=== PATIENT | female | born 1960 | race Caucasian/White ===

== ENCOUNTER 2022-02-19 11:57 | Inpatient (IN) | payer MEDICARE, OTHER, SELFPAY ==
[2022-02-19] VITALS (8 sets, daily range): BP systolic 102–152; BP diastolic 44–59; PULSE 102–117; RESP 18–26; TEMP 37.1–37.2; O2SAT 92–98
--- NOTE | ~2022-02-19 | XR_ITS ---
EXAMINATION: XR chest 2V DATE: 02/19/2022 12:35 INDICATION: Cough. Shortness of breath. TECHNIQUE: Frontal and lateral views of the chest were obtained. COMPARISON: None. FINDINGS: There is mild atelectasis in the lower lung zones. No pleural effusion or pneumothorax. Car diomegaly is noted. There are changes of posterior fusion procedure in lumbar spine. IMPRESSION: 1. Mild atelectasis in the lower lung zones. 2. Cardiomegaly. Reviewed, dictated and finalized at location A. COMMUNICATION ENGINEER
--- NOTE | 2022-02-19 12:07 | ECG_ITS ---
Measurements Intervals [place] Rate: 112 P: 41 OR: 129 QRS: 34 QRSD: 78 T: 29 QT: 315 QTc: 432 Interpretive Statements SINUS TACHYCARDIA VENTRICULAR PREMATURE COMPLEX LOW QRS VOLTAGE IN PRECORDIAL LEADS BASELINE WANDER- V3, V6 ABNORMAL ECG NO PREVIOUS ECG AVAILABLE FOR COMPARISON Electronically Signed On 02-19-2022 12:48:48 STRIKER OFF by Jl Short D.O.
[2022-02-19 12:20] LABS: Basophils Percent Auto 0.2 % (0.2-1.2); Hematocrit 40.6 % (37.0-47.0); Hemoglobin 13.5 g/dL (12.0-15.0); Immature Granulocyte Absolute 0.09 K/mm3 (0.00-0.031); Immature Granulocyte Percent A 0.5 % (0-0.5); Lymphocytes Absolute Auto 1.39 K/mm3 (0.9-3.2); Lymphocytes Percent Auto 8.1 % (18.3-44.2); Mean Corpuscular HGB Conc 33.3 g/dl (32-36); Mean Corpuscular Volume 93.1 fl (80-100); Mean Platelet Volume 9.2 fl (7.4-10.4); Monocytes Absolute Auto 0.9 K/mm3 (0.1-0.6); Monocytes Percent Auto 4.9 % (2.6-8.5); Neutrophils Absolute Auto 14.9 K/mm3 (1.3-6.7); Neutrophils Percent Auto 86.3 % (45.5-73.1); Platelet Count Result 296 k/mm3 (150-375); Red Blood Count 4.36 M/mm3 (4.2-5.4); Red Cell Distribution Width 12.9 % (11.5-14.5); White Blood Count 17.3 K/mm3 (4.5-10.0)
[2022-02-19 12:31] LABS: Alanine Aminotransferase 25 U/L (6-35); Albumin Level 4.4 g/dL (3.5-5.1); Alkaline Phosphatase 136 U/L (38-126); Anion Gap 19 mmol/L (8-16); Aspartate Amino Transferase 37 U/L (14-36); Bilirubin,Total 0.5 mg/dL (0.2-1.3); Blood Urea Nitrogen 24 mg/dL (7-17); Calcium 9.4 mg/dL (8.4-10.2); Carbon Dioxide 21 mmol/L (22-30); Chloride 101 mmol/L (98-107); Estimated CRCL calculation 49 ml/min; Estimated Glomerular Filt Rate 51; Glucose 163 mg/dL (65-110); Potassium 3.6 mmol/L (3.4-5.0); Sodium 141 mmol/L (137-145)
[2022-02-19] MEDS: ALBUTEROL SULFATE NEB 2.5 MG/3 ML INH INHALATION (12:48)
[2022-02-19] MEDS: IPRATROPIUM BR 0.02% INH SOLN 0.5 MG/2.5 ML VIAL INHALATION (12:49)
[2022-02-19 13:55] LABS: NT Pro B Type Natriuretic Pept 112 pg/mL (5-100); Troponin I < 0.012 ng/mL (0.000-0.034)
--- NOTE | 2022-02-19 14:47 | ED.SOB ---
HPI - SOB/Dyspnea General Chief Complaint: Shortness of Breath/Dyspnea Stated Complaint: Asthma exacerbation Time Seen by Provider: 02/19/22 12:30 History of Present Illness HPI Narrative: Pt presents with worsening SOB for several days. Pt has been seen by provider and is on prednisone 40 mg a day and not getting better. Pt denies fever. Pt has asthma history and has been hospitalized but never intubated or ICU. Related Data Allergies Allergy/AdvReac Type Severity Reaction Status Date / Time morphine AdvReac Hallucinati Verified 02/19/22 12:06 ng Review of Systems Review of Systems: All systems reviewed & are unremarkable except as noted in HPI and below PMFSH Past Medical History Medical History (Updated 02/19/22 @ 14:51 by Juvenal Grossman III, DO) Adrenal insufficiency Allergic rhinitis Cerebrovascular accident Left frontal lobe. Gastroesophageal reflux disease Hyperlipidemia Hypertension Hypothyroidism Left carotid artery occlusion Lumbar spinal stenosis Migraine Moderate persistent asthma Obstructive sleep apnea Osteopenia Pharyngoesophageal dysphagia Pulmonary nodule Rheumatoid arthritis Type 1 diabetes mellitus Complicated by retinopathy and neuropathy. Surgical History Surgical History (Updated 02/19/22 @ 14:50 by Judy Castellanos PA-C) History of 3 sections History of appendectomy History of bilateral cataract extraction History of dilation and curettage History of laparoscopic cholecystectomy History of lumbar spinal fusion History of lung biopsy Excision of benign right lower lobe nodule. History of right knee joint replacement History of tubal ligation History of vitrectomy Status post trigger finger release Exam Const: General: healthy appearing Nutritional Appearance: well nourished Orientation/consciousness: patient oriented x3 Limitations: no limitations Neck: Neck: normal visual inspection Chest: Chest palpation & inspection: normal inspection of the chest Resp: Effort & Inspection: labored Auscultation: wheezes Cardio: Rate: regular rate Rhythm: regular rhythm GI: GI Palp: Yes Soft to palpation Auscultation: normal bowel sounds Back/Spine/Pelvis: Back: no CVA tenderness Skin: General skin exam: normal color Rashes: no rashes Neuro: General: patient oriented x3, moves all extremities, no meningeal signs, no focal motor deficits and CN's II-XI intact bilaterally Cranial nerves: Yes Nystagmus not present Speech: normal speech Gait exam (Neuro): Normal gait present Extrem: General: normal to inspection and no clubbing, cyanosis or edema Psych: Mental Status: mental status grossly normal Affect: normal affect Attitude: cooperative Course Vital Signs Vital signs: Vital Signs Temperature 98.7 F 02/19/22 12:00 Pulse Rate 117 H 02/19/22 12:00 Respiratory Rate 24 H 02/19/22 12:00 Blood Pressure 152/59 H 02/19/22 12:00 Pulse Oximetry 96 02/19/22 12:00 Oxygen Delivery Room Air 02/19/22 12:00 Temperature 98.7 F 02/19/22 12:00 Pulse Rate 104 H 02/19/22 18:31 Respiratory Rate 19 02/19/22 18:31 Blood Pressure 128/56 L 02/19/22 18:31 Pulse Oximetry 98 02/19/22 18:31 Oxygen Delivery Room Air 02/19/22 12:47 MDM - SOB/Dyspnea Lab Data Result diagrams: 02/19/22 12:09 02/19/22 12:09 Labs: Lab Results 02/19/22 02/19/22 02/19/22 Range/Units 12:09 12:09 12:09 WBC 17.3 H (4.5-10.0) K/mm3 RBC 4.36 (4.2-5.4) M/mm3 Hgb 13.5 (12.0-15.0) g/dL Hct 40.6 (37.0-47.0) % MCV 93.1 (80-100) fl MCH 31.0 (26-34) pg MCHC 33.3 (32-36) g/dl RDW 12.9 (11.5-14.5) % Plt Count 296 (150-375) k/mm3 MPV 9.2 (7.4-10.4) fl Immature Gran % (Auto) 0.5 (0-0.5) % Neut % (Auto) 86.3 H (45.5-73.1) % Lymph % (Auto) 8.1 L (18.3-44.2) % [place] % (Auto) 4.9 (2.6-8.5) % Eos % (Auto) 0.0 (0-4.4) % Baso % (Auto) 0.2 (0.2-1.2)
[2022-02-19] MEDS: methylPREDNISolone SOD SUCC 125 MG VIAL IV PUSH (14:54)
--- NOTE | 2022-02-19 15:00 | PM.IMHP ---
H&P: HPI History of Present Illness Date/Time: 02/19/22 15:00 Chief Complaint: Shortness of breath. Narrative: This is a pleasant 61-year-old female with moderate persistent asthma, allergic rhinitis, type 1 diabetes, rheumatoid arthritis, hypothyroidism, adrenal insufficiency, hypertension, obstructive sleep apnea, and other comorbidities who presented to the ED for evaluation of shortness of breath. Her asthma is typically pretty well controlled although change in weather does occasionally cause her symptoms to act up. Last week she had cold symptoms although she started feeling better on Thursday. Over the weekend she visit her parents at their assisted living facility however she was unable to see them [id number] as they apparently have COVID, but she did sit in chest with several of the residents that day. On Thursday she started to feel short of breath while getting ready for taoism and she actually skipped taoism that day. Since that time she reports progressive dyspnea on lesser and lesser exertion with wheezing and cough productive of occasional clear, brown, or yellow colored phlegm. She has not had fever, chills, sweats, nausea, or vomiting. She also denies exertional chest pain and pleuritic pain. She has never been intubated for an asthma exacerbation. Two days ago she was given a prescription for prednisone, unfortunately without benefit. She went to see her doctor in office today and was sent to the ED instead as she appeared ill and was wheezing significantly. She is feeling better at this time after receiving a DuoNeb and IV Solu-Medrol. She has been afebrile since arrival with stable blood pressures, her heart rate has been continuously elevated in the low 100s. Workup was significant for white blood cell count of 17.3, BUN 24, creatinine 1.10, troponin less than 0.012, and proBNP of 112. Chest x-ray showed mild atelectasis in the lower lung zones and cardiomegaly. No viral testing was ordered. Due to continued cough and wheeze, she is being admitted overnight for further treatment. Review of Systems Review of Systems: Twelve systems were reviewed. No syncope or near syncope. No fever, chills, or sweats. No exertional chest pain. No orthopnea or paroxysmal nocturnal dyspnea. Diabetes is well controlled with recent A1c of 6.7%, per patient report. No nausea, vomiting, or diarrhea. Except as documented, all other systems were reviewed and are negative. PMFSH Past Medical History Medical History (Updated 02/19/22 @ 21:56 by Judy Castellanos PA-C) Adrenal insufficiency Allergic rhinitis Cerebrovascular accident Left frontal lobe. Gastroesophageal reflux disease Hyperlipidemia Hypertension Hypothyroidism Left carotid artery occlusion Lumbar spinal stenosis Migraine Moderate persistent asthma Obstructive sleep apnea Osteopenia Pharyngoesophageal dysphagia Pulmonary nodule Rheumatoid arthritis Type 1 diabetes mellitus Complicated by retinopathy and neuropathy. Recent A1c was 6.7 % per patient report. Surgical History Surgical History (Updated 02/19/22 @ 14:50 by Judy Castellanos PA-C) History of 3 sections History of appendectomy History of bilateral cataract extraction History of dilation and curettage History of laparoscopic cholecystectomy History of lumbar spinal fusion History of lung biopsy Excision of benign right lower lobe nodule. History of right knee joint replacement History of tubal ligation History of vitrectomy Status post trigger finger release Family History Family History (Updated 02/19/22 @ 21:49 by Judy Castellanos PA-C) Father Type 1 diabetes Hypertension Mother Heart disease Social History Social History (Updated 02/19/22 @ 21:49 by Judy Castellanos PA-C) Social History: Surrogate medical decision maker: Axel Gonzalez, spouse. Code status: Full code. Smoking status: Never smoker Alcohol intake: never Substance use: never Lack of Transportation: No
--- NOTE | 2022-02-19 19:45 | ADMGEN ---
This patient, Cher Gonzalez, was admitted to 3 [facility] Surg Room 319-01. Patient/family oriented to hospital policies and general routines including ID bracelet, bed and alarms, visiting hours, pain management, procedures, bathroom and other care routines, personal items, smoking policy, room service/diet, and visiting hours. Information on how to activate the Rapid Response Team has been discussed. Patient/Family are encouraged to report perceived risks to care and to ask questions if they do not understand what they are told or what they should do.
[2022-02-19 21:14] LABS: Glucose Point of Care 135 mg/dl (65-105)
[2022-02-19] MEDS: WATER FOR IRRIGATION, STERILE 1,000 ML BOTTLE 1000 ML (21:50)
[2022-02-19] MEDS: NORTRIPTYLINE HCL 25 MG CAPSULE PO (22:43)
[2022-02-19] MEDS: methylPREDNISolone SOD SUCC 125 MG VIAL 60 MG IV PUSH (22:43)
[2022-02-19] MEDS: DONEPEZIL HCL 10 MG TABLET PO (22:43)
[2022-02-19] MEDS: FAMOTIDINE 20 MG TABLET 40 MG PO (22:43)
[2022-02-19] MEDS: PREGABALIN (*CRX) 50 MG CAPSULE 100 MG PO (22:43)
[2022-02-19] MEDS: MONTELUKAST SODIUM 10 MG TABLET PO (22:43)
[2022-02-19] MEDS: ZONISAMIDE 100 MG CAPSULE 300 MG PO (22:43)
[2022-02-19] MEDS: ATORVASTATIN 40 MG TABLET PO (22:44)
[2022-02-19] MEDS: PROMETHAZINE/CODEINE (*CRX) 5 ML SYRUP PO (23:21)
[2022-02-19 23:33] LABS: Hemoglobin A1C 6.8 % (<5.7)
[2022-02-20] VITALS (10 sets, daily range): BP systolic 120–143; BP diastolic 48–63; PULSE 94–113; RESP 16–20; TEMP 36.1–36.6; O2SAT 90–98
--- NOTE | 2022-02-20 00:08 | ECHO_ITS ---
Patient Info Name: Cher Gonzalez Age: 61 years : 1960 Gender: Female Ht: 60 in Wt: 198 lbs BSA: 2.00 m2 HR: 95 bpm BP: 125 / 63 mmHg Heart Rhythm: Sinus Rhythm, Tachycardia Technical Quality: Fair Exam Date: 02/20/2022 11:54 AM Exam Location: [facility] Room: [facility] Patient Status: Inpatient Admit Date: 02/19/2022 Staff Ordering Physician: Judy Castellanos PA-C [employer]: Elisa Isbell RDCS Attending Provider: Reggie Layton MD Referring Physician: Emanuel VELEZ; Exam Type: CA echo dop color flow w con Study Info Indications - cardiomegaly Complete two-dimensional, color flow and Doppler transthoracic echocardiogram is performed with contrast to opacify the left ventricle and to improve the deliniation of the left ventricle endocardial borders. Contrast/Agitated Saline Contrast/Ag. Saline: Definity Amount: 2.00 ml Administered By: Elisa Isbell RUST Existing IV Access: Yes IV Access Condition: patent with no signs of infiltration Summary 1. Left ventricular systolic function is normal, estimated at 65-70%. 2. The left ventricular diastolic function is grade I diastolic dysfunction. 3. Right ventricular systolic function is normal. 4. There is trace mitral valve regurgitation. 5. There is trace tricuspid valve regurgitation. Left Ventricle Left ventricular chamber dimension is normal. Left ventricular systolic function is normal, estimated at 65-70%. There is no increased left ventricular wall thickness. The left ventricular diastolic function is grade I diastolic dysfunction. Right Ventricle Right ventricular chamber dimension is normal. Right ventricular systolic function is normal. Left Atria Left atrial chamber dimension is normal. Right Atria Right atrial chamber dimension is normal. Atrial Septum Intact interatrial septum visualized by color flow imaging. Aortic Valve The aortic valve is not well visualized. Pulmonic Valve The pulmonic valve is not well visualized. Mitral Valve The mitral valve has normal leaflets. There is no mitral valve stenosis. There is trace mitral valve regurgitation. Tricuspid Valve The tricuspid valve leaflets are not well visualized. There is trace tricuspid valve regurgitation. Pericardium/Pleural There is no pericardial effusion. Inferior Vena Cava Normal inferior vena cava with >50% collapse upon inspiration consistent with normal right atrial pressure. Aorta The aortic root size at the sinus of Valsalva is not well visualized. Left Ventricular Outflow Tract Name Value Normal LVOT 2D LVOT Diameter 1.95 cm LVOT Doppler LVOT Peak Gradient 7 mmHg LVOT Mean Gradient 4 mmHg LVOT VTI 25.77 cm LVOT VTI/AV VTI Ratio 1.02 LVOT Stroke Volume 77.10 ml LVOT CO 17.62 l/min LVOT CI 8.81 L/min/m2 Pulmonic Valve
[2022-02-20 00:11] LABS: Influenza A QL RT-PCR Negative (Negative); Influenza B QL RT-PCR Negative (Negative); RSV RNA, RT-PCR Negative (Negative); SARS-CoV-2 RNA PCR Negative
--- NOTE | 2022-02-20 00:47 | PC.NURSE ---
Insulin infusion pump agreement signed. Worksheet given and explained to patient. Basal Rate 12a-4a 1.2u/hr 4a-3p 2.2u/hr 3p-10p2.1 u/hr 10p-12a 1.7u/hr
[2022-02-20] MEDS: SODIUM CHLORIDE 0.9% IV 1,000 ML 100 ML IV CONT ×2 (02:46→22:20)
[2022-02-20] MEDS: HOME MEDICATION 1 EACH XX (06:06)
[2022-02-20] MEDS: LEVOTHYROXINE SODIUM 88 MCG TABLET PO (06:06)
[2022-02-20 07:22] LABS: Hematocrit 39.9 % (37.0-47.0); Hemoglobin 12.9 g/dL (12.0-15.0); Mean Corpuscular HGB Conc 32.3 g/dl (32-36); Mean Corpuscular Volume 95.9 fl (80-100); Mean Platelet Volume 9.2 fl (7.4-10.4); Platelet Count Result 318 k/mm3 (150-375); Red Blood Count 4.16 M/mm3 (4.2-5.4); Red Cell Distribution Width 13.1 % (11.5-14.5); White Blood Count 15.2 K/mm3 (4.5-10.0)
[2022-02-20 07:44] LABS: Alanine Aminotransferase 22 U/L (6-35); Albumin Level 4.1 g/dL (3.5-5.1); Alkaline Phosphatase 110 U/L (38-126); Anion Gap 14 mmol/L (8-16); Aspartate Amino Transferase 38 U/L (14-36); Bilirubin,Total 0.4 mg/dL (0.2-1.3); Blood Urea Nitrogen 25 mg/dL (7-17); Calcium 9.3 mg/dL (8.4-10.2); Carbon Dioxide 25 mmol/L (22-30); Chloride 103 mmol/L (98-107); Estimated CRCL calculation 52 ml/min; Estimated Glomerular Filt Rate 57; Glucose 73 mg/dL (65-110); Magnesium 2.7 mg/dL (1.6-2.3); Potassium 3.9 mmol/L (3.4-5.0); Sodium 142 mmol/L (137-145)
[2022-02-20 08:03] LABS: CRP 13.5 mg/dL (<1.0)
[2022-02-20] MEDS: IPRATROPIUM BR 0.02% INH SOLN 0.5 MG/2.5 ML VIAL INHALATION ×4 (08:50→20:37)
[2022-02-20] MEDS: ALBUTEROL SULFATE NEB 2.5 MG/3 ML INH 5 MG INHALATION ×4 (08:50→20:36)
[2022-02-20] MEDS: FLUTICASONE/UMECLIDIN/VILANTER 200-62.5-25 MCG ELLIPTA 1 PUFF INHALATION (09:01)
[2022-02-20 09:07] LABS: Thyroid Stimulating Hormone Reflex 0.515 uIU/mL (0.465-4.68)
[2022-02-20] MEDS: predniSONE 20 MG TABLET 40 MG PO (09:08)
[2022-02-20] MEDS: CLOPIDOGREL BISULFATE 75 MG TABLET PO (09:08)
[2022-02-20] MEDS: FOLIC ACID 1 MG TABLET PO (09:08)
[2022-02-20] MEDS: PANTOPRAZOLE 40 MG TABLET PO (09:08)
[2022-02-20] MEDS: lisinopriL 5 MG TABLET PO (09:08)
[2022-02-20] MEDS: modafiniL (*CRX) 200 MG TABLET PO (09:08)
[2022-02-20] MEDS: LORATADINE 10 MG TABLET PO (09:08)
[2022-02-20] MEDS: TORSEMIDE 20 MG TABLET 40 MG PO (09:08)
[2022-02-20] MEDS: CYANOCOBALAMIN 1,000 MCG TABLET 1000 MCG PO (09:08)
[2022-02-20] MEDS: modafiniL (*CRX) 100 MG TABLET PO (09:09)
[2022-02-20] MEDS: FLUTICASONE PROPIONATE 0.05% NA SPR 16 GM BTL (*BKC) 2 SPRAY NASAL (09:09)
[2022-02-20] MEDS: AZELASTINE HCL NASAL 0.1% 137 MCG/SPR 30 ML BTL 1 SPRAY NASAL ×2 (09:09→22:11)
[2022-02-20] MEDS: PREGABALIN (*CRX) 25 MG CAPSULE PO (09:09)
[2022-02-20] MEDS: aMILoride HCL 5 MG TABLET PO (09:13)
[2022-02-20 09:42] LABS: Procalcitonin 0.1 ng/mL
[2022-02-20] MEDS: PERFLUTREN LIPID MICROSPHERES 1.5 ML VIAL DILUTED TO 10 ML TOTAL VOLUME IV PUSH (11:50)
--- NOTE | 2022-02-20 12:59 | PCDIET ---
Nutrition consult received for insulin pump management. Pt is not a new diabetic, has used the pump for years, no questions or concerns at this time.
--- NOTE | 2022-02-20 17:20 | PM.IMPN ---
Progress Note: A&P Assessment and Plan (1) Asthma with exacerbation: Qualifiers: Asthma severity: moderate Asthma persistence: persistent Qualified Code(s): J45.41 - Moderate persistent asthma with (acute) exacerbation Code(s): J45.901 - Unspecified asthma with (acute) exacerbation Status: Acute Assessment and Plan: Likely precipitated by change in weather and recent URI. Continue scheduled bronchodilators some increase to Q 4. she received 2 doses of Solu-Medrol and it did upon admission transition to prednisone 40 mg p.o. q.day x5 doses, starting today 02/19/2022. Monitor peak flows and encourage incentive spirometry, IS 750 mL (2) Upper respiratory infection: Qualifiers: URI type: unspecified viral URI Qualified Code(s): J06.9 - Acute upper respiratory infection, unspecified Code(s): J06.9 - Acute upper respiratory infection, unspecified Status: Acute Assessment and Plan: cold symptoms last week which improved over the weekend but her cough has returned. There is no evidence of infection on chest x-ray however she presented with increasing shortness of breath with a productive cough, increasing sputum change in color continue empiric antibiotics, started IV azithromycin and Rocephin started on 02/19/2022. Sputum to be attempted for culture. influenza A/B, RSV, and COVID all negative. (3) Cardiomegaly: Code(s): I51.7 - Cardiomegaly Status: Acute Assessment and Plan: Echocardiogram for cardiomegaly and dyspnea pending. (4) Type 1 diabetes mellitus: Qualifiers: Diabetes mellitus complication status: with neurologic complications Diabetes mellitus complication detail: with polyneuropathy Qualified Code(s): E10.42 - Type 1 diabetes mellitus with diabetic polyneuropathy Code(s): E10.9 - Type 1 diabetes mellitus without complications Status: Chronic Assessment and Plan: chronic, Well controlled with a recent A1c of 6.7%. continue insulin pump and continuous glucose monitor. settings 1.2 units 12:00 a.m. to 4:00 a.m., 2.2 units for a.m. to 1500, 1 unit [id number], 1.7 units 2200 to 2400. The patient had a hypoglycemic episode, glucose 57 and she was asymptomatic this morning. She is given oral food and she was and repeat blood sugar 110. (5) Adrenal insufficiency: Code(s): E27.40 - Unspecified adrenocortical insufficiency Status: Chronic Assessment and Plan: Currently receiving Solu-Medrol thus will hold prednisone 5 milligrams daily. (6) Hypothyroidism: Code(s): E03.9 - Hypothyroidism, unspecified Status: Chronic Assessment and Plan: Continue levothyroxine. (7) Obstructive sleep apnea: Code(s): G47.33 - Obstructive sleep apnea (adult) (pediatric) Status: Chronic Assessment and Plan: CPAP will be provided for the patient to use while hospitalized. (8) Hypertension: Code(s): I10 - Essential (primary) hypertension Status: Chronic Assessment and Plan: Blood pressures were reviewed and they are stable. continue Amiloride, lisinopril and torsemide at home doses. (9) Left carotid artery occlusion: Code(s): I65.22 - Occlusion and stenosis of left carotid artery Status: Acute Assessment and Plan: Continue clopidogrel. Plan CODE STATUS: FULL CODE DISPOSITION: Home was spouse. Time Spent With Patient Time with patient: 15 - 25 minutes Subjective Date/time seen: 02/20/22 17:20 She felt very short of breath while showering and following. No dizziness, chest pain, chest pain, abdominal pain, nausea vomiting. She does have persistent cough with brown green sputum. Review of Systems Review of Systems: All systems reviewed & are unremarkable except as noted in HPI and below Exam Narrative: GENERAL: tired appearing, well-nourished older adult female, non-toxic, in no
[2022-02-20] MEDS: ATORVASTATIN 40 MG TABLET PO (22:12)
[2022-02-20] MEDS: FAMOTIDINE 20 MG TABLET 40 MG PO (22:12)
[2022-02-20] MEDS: NORTRIPTYLINE HCL 25 MG CAPSULE PO (22:12)
[2022-02-20] MEDS: ZONISAMIDE 100 MG CAPSULE 300 MG PO (22:12)
[2022-02-20] MEDS: DONEPEZIL HCL 10 MG TABLET PO (22:13)
[2022-02-20] MEDS: MONTELUKAST SODIUM 10 MG TABLET PO (22:13)
[2022-02-20] MEDS: PREGABALIN (*CRX) 50 MG CAPSULE 100 MG PO (22:19)
[2022-02-20 23:58] LABS: Glucose Point of Care 117 mg/dl (65-105)
[2022-02-21] VITALS (18 sets, daily range): BP systolic 114–154; BP diastolic 49–53; PULSE 3–110; RESP 16–20; TEMP 36–37.4; O2SAT 91–96
[2022-02-21] MEDS: PROMETHAZINE/CODEINE (*CRX) 5 ML SYRUP PO ×2 (00:06→23:03)
[2022-02-21] MEDS: IPRATROPIUM BR 0.02% INH SOLN 0.5 MG/2.5 ML VIAL INHALATION ×7 (00:06→23:37)
[2022-02-21] MEDS: ALBUTEROL SULFATE NEB 2.5 MG/3 ML INH 5 MG INHALATION ×7 (00:06→23:37)
[2022-02-21] MEDS: HOME MEDICATION 1 EACH XX (06:59)
[2022-02-21] MEDS: LEVOTHYROXINE SODIUM 88 MCG TABLET PO (06:59)
[2022-02-21 07:38] LABS: Glucose Point of Care 78 mg/dl (65-105)
[2022-02-21 08:13] LABS: Glucose Point of Care 121 mg/dl (65-105)
[2022-02-21] MEDS: FLUTICASONE/UMECLIDIN/VILANTER 200-62.5-25 MCG ELLIPTA 1 PUFF INHALATION (08:32)
[2022-02-21] MEDS: predniSONE 20 MG TABLET 40 MG PO (08:57)
[2022-02-21] MEDS: AZELASTINE HCL NASAL 0.1% 137 MCG/SPR 30 ML BTL 1 SPRAY NASAL ×2 (08:57→20:24)
[2022-02-21] MEDS: CLOPIDOGREL BISULFATE 75 MG TABLET PO (08:57)
[2022-02-21] MEDS: FLUTICASONE PROPIONATE 0.05% NA SPR 16 GM BTL (*BKC) 2 SPRAY NASAL (08:58)
[2022-02-21] MEDS: lisinopriL 5 MG TABLET PO (08:58)
[2022-02-21] MEDS: modafiniL (*CRX) 100 MG TABLET PO (08:58)
[2022-02-21] MEDS: CYANOCOBALAMIN 1,000 MCG TABLET 1000 MCG PO (08:58)
[2022-02-21] MEDS: FOLIC ACID 1 MG TABLET PO (08:58)
[2022-02-21] MEDS: LORATADINE 10 MG TABLET PO (08:58)
[2022-02-21] MEDS: modafiniL (*CRX) 200 MG TABLET PO (08:58)
[2022-02-21] MEDS: PANTOPRAZOLE 40 MG TABLET PO (08:59)
[2022-02-21] MEDS: TORSEMIDE 20 MG TABLET 40 MG PO (08:59)
[2022-02-21] MEDS: PREGABALIN (*CRX) 25 MG CAPSULE PO (09:04)
[2022-02-21] MEDS: SODIUM CHLORIDE 0.9% IV 1,000 ML 100 ML IV CONT (09:05)
[2022-02-21] MEDS: aMILoride HCL 5 MG TABLET PO (11:06)
--- NOTE | 2022-02-21 11:36 | PM.IMPN ---
Progress Note: A&P Assessment and Plan (1) Asthma with exacerbation: Qualifiers: Asthma persistence: persistent Asthma severity: moderate Qualified Code(s): J45.41 - Moderate persistent asthma with (acute) exacerbation Code(s): J45.901 - Unspecified asthma with (acute) exacerbation Status: Acute Assessment and Plan: Likely precipitated by change in weather and recent URI. Continue scheduled bronchodilators some increase to Q 4. she received 2 doses of Solu-Medrol and it did upon admission transition to prednisone 40 mg p.o. q.day x5 doses, starting today 02/19/2022. Monitor peak flows and encourage incentive spirometry, IS 750 mL 02/21/2022 patient reports some improvement in breathing but still is short of breath with exertion. SpO2 93% with ambulation on room air continue current management. (2) Upper respiratory infection: Qualifiers: URI type: unspecified viral URI Qualified Code(s): J06.9 - Acute upper respiratory infection, unspecified Code(s): J06.9 - Acute upper respiratory infection, unspecified Status: Acute Assessment and Plan: cold symptoms last week which improved over the weekend but her cough has returned. There is no evidence of infection on chest x-ray however she presented with increasing shortness of breath with a productive cough, increasing sputum change in color continue empiric antibiotics, started IV azithromycin and Rocephin started on 02/19/2022. Sputum to be attempted for culture. influenza A/B, RSV, and COVID all negative. 02/21/2022 will transition to oral antibiotics (3) Type 1 diabetes mellitus: Qualifiers: Diabetes mellitus complication detail: with polyneuropathy Diabetes mellitus complication status: with neurologic complications Qualified Code(s): E10.42 - Type 1 diabetes mellitus with diabetic polyneuropathy Code(s): E10.9 - Type 1 diabetes mellitus without complications Status: Chronic Assessment and Plan: chronic, Well controlled with a recent A1c of 6.7%. continue insulin pump and continuous glucose monitor. settings 1.2 units 12:00 a.m. to 4:00 a.m., 2.2 units for a.m. to 1500, 1 unit [id number], 1.7 units 2200 to 2400. The patient had a hypoglycemic episode, glucose 57 and she was asymptomatic this morning. She is given oral food and she was and repeat blood sugar 110. stable (4) Adrenal insufficiency: Code(s): E27.40 - Unspecified adrenocortical insufficiency Status: Chronic Assessment and Plan: Currently receiving Solu-Medrol thus will hold prednisone 5 milligrams daily. (5) Hypothyroidism: Code(s): E03.9 - Hypothyroidism, unspecified Status: Chronic Assessment and Plan: Continue levothyroxine. (6) Obstructive sleep apnea: Code(s): G47.33 - Obstructive sleep apnea (adult) (pediatric) Status: Chronic Assessment and Plan: CPAP will be provided for the patient to use while hospitalized. (7) Hypertension: Code(s): I10 - Essential (primary) hypertension Status: Chronic Assessment and Plan: Blood pressures were reviewed and they are stable. continue Amiloride, lisinopril and torsemide at home doses. (8) Left carotid artery occlusion: Code(s): I65.22 - Occlusion and stenosis of left carotid artery Status: Chronic Assessment and Plan: Continue clopidogrel. (9) Grade I diastolic dysfunction: Code(s): I51.89 - Other ill-defined heart diseases Status: Chronic Assessment and Plan: Echocardiogram for cardiomegaly and dyspnea shows normal left ventricular systolic function, EF 65%, grade 1 diastolic dysfunction and right ventricle systolic pressure of 56 mmHg suggestive of pulmonary hypertension. respiratory symptoms appear to be secondary to asthma exacerbation. Chronic diastolic CHF that is asymptomatic, aha stage B structural disease without signs a
[2022-02-21 11:44] LABS: Glucose Point of Care 148 mg/dl (65-105)
[2022-02-21 16:34] LABS: Glucose Point of Care 193 mg/dl (65-105)
[2022-02-21] MEDS: DONEPEZIL HCL 10 MG TABLET PO (20:22)
[2022-02-21] MEDS: ZONISAMIDE 100 MG CAPSULE 300 MG PO (20:22)
[2022-02-21] MEDS: ATORVASTATIN 40 MG TABLET PO (20:22)
[2022-02-21] MEDS: MONTELUKAST SODIUM 10 MG TABLET PO (20:22)
[2022-02-21] MEDS: PREGABALIN (*CRX) 50 MG CAPSULE 100 MG PO (20:23)
[2022-02-21] MEDS: FAMOTIDINE 20 MG TABLET 40 MG PO (20:23)
[2022-02-21] MEDS: DOCUSATE SODIUM 100 MG CAPSULE PO (20:24)
[2022-02-21] MEDS: NORTRIPTYLINE HCL 25 MG CAPSULE PO (20:24)
[2022-02-22] VITALS (11 sets, daily range): BP systolic 121–149; BP diastolic 49–53; PULSE 96–118; RESP 18–22; TEMP 36.5–37; O2SAT 94–97
[2022-02-22] MEDS: ALBUTEROL SULFATE NEB 2.5 MG/3 ML INH 5 MG INHALATION ×4 (03:20→20:39)
[2022-02-22] MEDS: IPRATROPIUM BR 0.02% INH SOLN 0.5 MG/2.5 ML VIAL INHALATION ×4 (03:20→20:38)
[2022-02-22] MEDS: LEVOTHYROXINE SODIUM 88 MCG TABLET PO (06:38)
[2022-02-22 07:21] LABS: Hematocrit 38.4 % (37.0-47.0); Hemoglobin 12.4 g/dL (12.0-15.0); Mean Corpuscular HGB Conc 32.3 g/dl (32-36); Mean Corpuscular Hemoglobin 30.2 pg (26-34); Mean Corpuscular Volume 93.7 fl (80-100); Mean Platelet Volume 9.1 fl (7.4-10.4); Platelet Count Result 307 k/mm3 (150-375); White Blood Count 12.9 K/mm3 (4.5-10.0)
[2022-02-22 07:34] LABS: Anion Gap 12 mmol/L (8-16); Blood Urea Nitrogen 22 mg/dL (7-17); Carbon Dioxide 25 mmol/L (22-30); Chloride 100 mmol/L (98-107); Estimated CRCL calculation 48 ml/min; Estimated Glomerular Filt Rate 51; Glucose 136 mg/dL (65-110); Potassium 3.4 mmol/L (3.4-5.0); Sodium 137 mmol/L (137-145)
[2022-02-22 07:45] LABS: Glucose Point of Care 144 mg/dl (65-105)
[2022-02-22] MEDS: FLUTICASONE/UMECLIDIN/VILANTER 200-62.5-25 MCG ELLIPTA 1 PUFF INHALATION (08:56)
[2022-02-22] MEDS: LORATADINE 10 MG TABLET PO (08:59)
[2022-02-22] MEDS: modafiniL (*CRX) 100 MG TABLET PO (08:59)
[2022-02-22] MEDS: levoFLOXacin 750 MG TABLET PO (08:59)
[2022-02-22] MEDS: lisinopriL 5 MG TABLET PO (08:59)
[2022-02-22] MEDS: FOLIC ACID 1 MG TABLET PO (09:00)
[2022-02-22] MEDS: predniSONE 20 MG TABLET 40 MG PO (09:00)
[2022-02-22] MEDS: PREGABALIN (*CRX) 25 MG CAPSULE PO (09:00)
[2022-02-22] MEDS: CLOPIDOGREL BISULFATE 75 MG TABLET PO (09:00)
[2022-02-22] MEDS: PANTOPRAZOLE 40 MG TABLET PO (09:00)
[2022-02-22] MEDS: modafiniL (*CRX) 200 MG TABLET PO (09:00)
[2022-02-22] MEDS: TORSEMIDE 20 MG TABLET 40 MG PO (09:00)
[2022-02-22] MEDS: aMILoride HCL 5 MG TABLET PO (09:00)
[2022-02-22] MEDS: CYANOCOBALAMIN 1,000 MCG TABLET 1000 MCG PO (09:01)
[2022-02-22] MEDS: FLUTICASONE PROPIONATE 0.05% NA SPR 16 GM BTL (*BKC) 2 SPRAY NASAL (09:02)
[2022-02-22] MEDS: AZELASTINE HCL NASAL 0.1% 137 MCG/SPR 30 ML BTL 1 SPRAY NASAL ×2 (09:02→21:04)
[2022-02-22] MEDS: DOCUSATE SODIUM 100 MG CAPSULE PO ×2 (09:02→21:04)
[2022-02-22] MEDS: HOME MEDICATION 1 EACH XX (09:08)
[2022-02-22 11:36] LABS: Glucose Point of Care 419 mg/dl (65-105)
--- NOTE | 2022-02-22 13:15 | PM.IMPN ---
Progress Note: A&P Assessment and Plan (1) Asthma with exacerbation: Qualifiers: Asthma persistence: persistent Asthma severity: moderate Qualified Code(s): J45.41 - Moderate persistent asthma with (acute) exacerbation Code(s): J45.901 - Unspecified asthma with (acute) exacerbation Status: Acute Assessment and Plan: Likely precipitated by change in weather and recent URI. Continue scheduled bronchodilators some increase to Q 4. she received 2 doses of Solu-Medrol and it did upon admission transition to prednisone 40 mg p.o. q.day x5 doses, starting today 02/19/2022. Monitor peak flows and encourage incentive spirometry, IS 750 mL 02/21/2022 patient reports some improvement in breathing but still is short of breath with exertion. SpO2 93% with ambulation on room air continue current management. 2021 peak flow 200 of 430 predicted. Patient is still not at her baseline and complains of dyspnea with exertion as well as some dizziness. SpO2 with ambulation 93% on room air but noticeably dyspneic. Will continue systemic steroids day 4 of 5, however patient may require prednisone taper to adrenal insufficiency dose of 5 mg daily. Will trial changing short-acting bronchodilators to q.6 scheduled and preparation for discharge soon. Monitor respiratory status closely. (2) Upper respiratory infection: Qualifiers: URI type: unspecified viral URI Qualified Code(s): J06.9 - Acute upper respiratory infection, unspecified Code(s): J06.9 - Acute upper respiratory infection, unspecified Status: Acute Assessment and Plan: cold symptoms last week which improved over the weekend but her cough has returned. There is no evidence of infection on chest x-ray however she presented with increasing shortness of breath with a productive cough, increasing sputum change in color continue empiric antibiotics, started IV azithromycin and Rocephin started on 02/19/2022. Sputum culture Negative for organism growth, however sputum was collected on 02/20 after antibiotics were initiated influenza A/B, RSV, and COVID all negative. 02/21/2022 will transition to oral antibiotics 02/22/2022 patient reports worsening a glucose control with blood glucose greater than 400 today which is unusual. Patient's only new medication is Levaquin for empiric pneumonia coverage mL which hyperglycemia may be a side effect. Will stop Levaquin and changed to doxycycline 100 mg p.o. b.i.d. x5 days to complete a 7 day antibiotic course. Resume azithromycin for atypical coverage 250 mg p.o. daily x2 days (3) Type 1 diabetes mellitus: Qualifiers: Diabetes mellitus complication detail: with polyneuropathy Diabetes mellitus complication status: with neurologic complications Qualified Code(s): E10.42 - Type 1 diabetes mellitus with diabetic polyneuropathy Code(s): E10.9 - Type 1 diabetes mellitus without complications Status: Chronic Assessment and Plan: chronic, Well controlled with a recent A1c of 6.7%. continue insulin pump and continuous glucose monitor. settings 1.2 units 12:00 a.m. to 4:00 a.m., 2.2 units for a.m. to 1500, 1 unit [id number], 1.7 units 2200 to 2400. 02/20/22 The patient had a hypoglycemic episode, glucose 57 and she was asymptomatic this morning. She is given oral food and she was and repeat blood sugar 110. patient hyperglycemic as above. Continue to manage insulin pump this patient has had this for approximately 20 years and is well-versed. She does do her own carbohydrate correction, and sliding scale. She does take Farxiga, presumed for renal and cardiovascular disease protection. Will Will start Jardiance equivalent of Farxiga does as this is on formulary. (4) Adrenal insufficiency: Code(s): E27.40 - Unspecified adrenocortical insufficiency Status: Chronic Assessment and Plan: Chronic, patient takes prednisone 5 milligrams daily.
[2022-02-22] MEDS: EMPAGLIFLOZIN 10 MG TABLET PO (13:17)
[2022-02-22 16:47] LABS: Glucose Point of Care 313 mg/dl (65-105)
[2022-02-22] MEDS: DONEPEZIL HCL 10 MG TABLET PO (21:02)
[2022-02-22] MEDS: NORTRIPTYLINE HCL 25 MG CAPSULE PO (21:02)
[2022-02-22] MEDS: ATORVASTATIN 40 MG TABLET PO (21:02)
[2022-02-22] MEDS: PREGABALIN (*CRX) 50 MG CAPSULE 100 MG PO (21:03)
[2022-02-22] MEDS: FAMOTIDINE 20 MG TABLET 40 MG PO (21:03)
[2022-02-22] MEDS: ZONISAMIDE 100 MG CAPSULE 300 MG PO (21:03)
[2022-02-22] MEDS: MONTELUKAST SODIUM 10 MG TABLET PO (21:04)
[2022-02-22] MEDS: DOXYCYCLINE HYCLATE 100 MG TABLET PO (21:04)
[2022-02-23] MEDS: ALBUTEROL SULFATE NEB 2.5 MG/3 ML INH 5 MG INHALATION ×2 (02:12→08:33)
[2022-02-23] MEDS: IPRATROPIUM BR 0.02% INH SOLN 0.5 MG/2.5 ML VIAL INHALATION ×2 (02:12→08:33)
[2022-02-23 02:13] VITALS: PULSE 96; RESP 18; O2SAT 93
[2022-02-23 02:51] VITALS: PULSE 89; RESP 18
[2022-02-23 05:40] LABS: Glucose Point of Care 101 mg/dl (65-105)
[2022-02-23 05:52] LABS: Basophils Absolute Auto 0.1 K/mm3 (0.0-0.1); Basophils Percent Auto 0.6 % (0.2-1.2); Eosinophils Absolute Auto 0.2 K/mm3 (0-0.3); Eosinophils Percent Auto 1.4 % (0-4.4); Hematocrit 37.2 % (37.0-47.0); Hemoglobin 12.3 g/dL (12.0-15.0); Immature Granulocyte Absolute 0.21 K/mm3 (0.00-0.031); Immature Granulocyte Percent A 1.8 % (0-0.5); Lymphocytes Absolute Auto 3.03 K/mm3 (0.9-3.2); Lymphocytes Percent Auto 25.7 % (18.3-44.2); Mean Corpuscular HGB Conc 33.1 g/dl (32-36); Mean Corpuscular Hemoglobin 30.6 pg (26-34); Mean Corpuscular Volume 92.5 fl (80-100); Monocytes Percent Auto 8.4 % (2.6-8.5); Neutrophils Absolute Auto 7.3 K/mm3 (1.3-6.7); Neutrophils Percent Auto 62.1 % (45.5-73.1); Platelet Count Result 322 k/mm3 (150-375); Red Blood Count 4.02 M/mm3 (4.2-5.4); Red Cell Distribution Width 12.8 % (11.5-14.5); White Blood Count 11.8 K/mm3 (4.5-10.0)
[2022-02-23 06:00] VITALS: BP 132/50; PULSE 95; RESP 20; TEMP 36.2; O2SAT 98
[2022-02-23] MEDS: LEVOTHYROXINE SODIUM 88 MCG TABLET PO (06:18)
[2022-02-23] MEDS: HOME MEDICATION 1 EACH XX (06:19)
[2022-02-23 07:55] LABS: Glucose Point of Care 95 mg/dl (65-105)
[2022-02-23 08:32] VITALS: PULSE 95; RESP 18
[2022-02-23 08:35] VITALS: PULSE 96; O2SAT 96
[2022-02-23] MEDS: DOXYCYCLINE HYCLATE 100 MG TABLET PO (08:57)
[2022-02-23] MEDS: AZELASTINE HCL NASAL 0.1% 137 MCG/SPR 30 ML BTL 1 SPRAY NASAL (08:57)
[2022-02-23] MEDS: FLUTICASONE PROPIONATE 0.05% NA SPR 16 GM BTL (*BKC) 2 SPRAY NASAL (08:57)
[2022-02-23] MEDS: TORSEMIDE 20 MG TABLET 40 MG PO (08:57)
[2022-02-23] MEDS: lisinopriL 5 MG TABLET PO (08:57)
[2022-02-23] MEDS: LORATADINE 10 MG TABLET PO (08:57)
[2022-02-23] MEDS: DOCUSATE SODIUM 100 MG CAPSULE PO (08:58)
[2022-02-23] MEDS: FOLIC ACID 1 MG TABLET PO (08:58)
[2022-02-23] MEDS: predniSONE 20 MG TABLET 40 MG PO (08:58)
[2022-02-23] MEDS: EMPAGLIFLOZIN 10 MG TABLET PO (08:58)
[2022-02-23] MEDS: aMILoride HCL 5 MG TABLET PO (08:58)
[2022-02-23] MEDS: CLOPIDOGREL BISULFATE 75 MG TABLET PO (08:58)
[2022-02-23] MEDS: PREGABALIN (*CRX) 25 MG CAPSULE PO (08:58)
[2022-02-23] MEDS: modafiniL (*CRX) 100 MG TABLET PO (08:58)
[2022-02-23] MEDS: PANTOPRAZOLE 40 MG TABLET PO (08:58)
[2022-02-23] MEDS: modafiniL (*CRX) 200 MG TABLET PO (08:59)
[2022-02-23] MEDS: AZITHROMYCIN 250 MG TABLET PO (08:59)
--- NOTE | 2022-02-23 10:51 | PM.DS ---
DS: Admitting Diagnosis Discharge Date 02/23/2022 1051 Admitting Diagnosis Asthma with exacerbation Upper respiratory infection Cardiomegaly Type 1 diabetes mellitus, chronic Adrenal insufficiency, chronic Hypothyroidism, chronic Obstructive sleep apnea, chronic Hypertension, chronic Left carotid artery occlusion, chronic DS: Discharge Diagnosis Discharge Diagnosis (1) Asthma with exacerbation: Qualifiers: Asthma persistence: persistent Asthma severity: moderate Qualified Code(s): J45.41 - Moderate persistent asthma with (acute) exacerbation Code(s): J45.901 - Unspecified asthma with (acute) exacerbation Status: Acute Assessment and Plan: Likely precipitated by change in weather and recent URI. She presented to the hospital with increased shortness of breath and wheezing. Treated with scheduled bronchodilators Q4-6 hours. she received 2 doses of Solu-Medrol and upon admission. transition to prednisone 40 mg p.o. q.day x5 doses, starting 02/19/2022. Monitor peak flows was 200 of 430 x 2 days prior to discharge. Encourage incentive spirometry, IS 1000 mL slowly improving. Discharged on prednisone taper over 12 days to adrenal insufficiency dose. (2) Upper respiratory infection: Qualifiers: URI type: unspecified viral URI Qualified Code(s): J06.9 - Acute upper respiratory infection, unspecified Code(s): J06.9 - Acute upper respiratory infection, unspecified Status: Acute Assessment and Plan: cold symptoms last week prior to admission which improved over the weekend but her cough returned. There is no evidence of infection on chest x-ray however she presented with increasing shortness of breath with a productive cough, increasing sputum amount and change in color continued empiric antibiotics, started IV azithromycin and Rocephin started on 02/19/2022, transitioned to oral levaquin 02/22/22, however, she had severe episode of hyperglycemia and feeling funny. so she was changed to doxycycline 100 mg PO BID x 5 days and resumed on azithromycin for atypical coverage to complete 5 day course. Sputum culture Negative for organism growth, however sputum was collected on 02/20 after antibiotics were initiated influenza A/B, RSV, and COVID all negative. On room air at discharge. (3) Type 1 diabetes mellitus: Qualifiers: Diabetes mellitus complication detail: with polyneuropathy Diabetes mellitus complication status: with neurologic complications Qualified Code(s): E10.42 - Type 1 diabetes mellitus with diabetic polyneuropathy Code(s): E10.9 - Type 1 diabetes mellitus without complications Status: Chronic Assessment and Plan: chronic, Well controlled with a recent A1c of 6.7%. continue insulin pump and continuous glucose monitor. settings 1.2 units 12:00 a.m. to 4:00 a.m., 2.2 units for a.m. to 1500, 1 unit [id number], 1.7 units 2200 to 2400. 02/20/22 The patient had a hypoglycemic episode, glucose 57 and she was asymptomatic this morning. She is given oral food and she was and repeat blood sugar 110. 02/22/22 patient hyperglycemic >400. Continue to manage insulin pump this patient has had this for approximately 20 years and is well-versed. She does do her own carbohydrate correction, and sliding scale. She does take Farxiga, presumed for renal and cardiovascular disease protection. Started Jardiance equivalent of Farxiga does as this is on formulary. Levaquin was stopped for possible contribution to hyperglycemia. 02/23/22 glucose level improved. Patient found insulin tubing kinked and was corrected by the patient. (4) Adrenal insufficiency: Code(s): E27.40 - Unspecified adrenocortical insufficiency Status: Chronic Assessment and Plan: Chronic, patient takes prednisone 5 milligrams daily. Will wean prednisone dose over 2 weeks to a baseline dose (5) Hypothyroidism: Code(s): E03.9 - Hypothyro
[2022-02-24 02:27] LABS: Pneumococcal Antigen Urine Not Detected (Not Detected)
[2022-02-24 15:37] LABS: Legionella pneumophila Ag Ur Not Detected (Not Detected)
[2022-02-25 20:50] LABS: Mycoplasma IgM Antibody Titer 42 U/mL (<770)
== END 2022-02-23 12:00 | disposition home or self-care (01) | DRG 202 ==
LOC: ANHED 14:51 → ANH3MEDSUR 18:08
PROVIDERS: Emergency Medicine; Nurse Practitioner Family; Physician Assistant; Admitting Provider Chiropractor; Emergency Provider Emergency Medicine; PCP Internal Medicine; Visit Provider Chiropractor
DX: J45.41 Moderate persistent asthma with (acute) exacerbation (principal); E27.40 Unspecified adrenocortical insufficiency; I50.32 Chronic diastolic (congestive) heart failure; E03.9 Hypothyroidism, unspecified; I11.0 Hypertensive heart disease with heart failure; G47.33 Obstructive sleep apnea (adult) (pediatric); M06.9 Rheumatoid arthritis, unspecified; J06.9 Acute upper respiratory infection, unspecified; I65.22 Occlusion and stenosis of left carotid artery; E10.319 Type 1 diabetes mellitus with unspecified diabetic retinopathy without macular edema; E10.40 Type 1 diabetes mellitus with diabetic neuropathy, unspecified; Z20.822 Contact with and (suspected) exposure to COVID-19; Z86.73 Personal history of transient ischemic attack (TIA), and cerebral infarction without residual deficits; Z83.3 Family history of diabetes mellitus; Z82.49 Family history of ischemic heart disease and other diseases of the circulatory system; Z79.51 Long term (current) use of inhaled steroids; Z79.899 Other long term (current) drug therapy; Z88.5 Allergy status to narcotic agent; Z88.8 Allergy status to other drugs, medicaments and biological substances
CPT/HCPCS: 36415; 71046; 80048; 80053; 82948; 83036; 83735; 83880; 84145; 84443; 84484; 85025; 85027; 86140; 86738; 87070; 87205; 87449; 87637; 87899; 93005; 94640; 96361; 96365; 96375; 96376; 99285; A9270; C8929; G0378; J0456; J0696; J2930; J7030; J7512; Q9957